=== PATIENT | male | born 1980 | race Hispanic/Latino ===

== ENCOUNTER 2024-07-29 12:48 | Emergency (ER) | payer SELFPAY ==
[2024-07-29] MEDS ORDERED: LIDOCAINE 1% 20 ML MDV ONE (16:52)
[2024-07-29] MEDS ORDERED: KETOROLAC 30 MG/ML INJ ONE (16:52)
[2024-07-29] MEDS ORDERED: LIDOCAINE 2% W/EPI 1:200,000 MPF 20 ML VIAL IM ONE (17:12)
[2024-07-29] MEDS ORDERED: SMZ./TMP. 800/160 MG TABLET ONE (17:46)
[2024-07-29] MEDS ORDERED: DOXYCYCLINE 100 MG CAP PO ONE (17:47)
--- NOTE | 2024-07-29 17:49 | ER ---
Nurse's Notes [facility] Name: Graham Luque Age: 44 yrs Sex: Male : 1980 Arrival Date: 07/29/2024 Time: 12:48 Bed 12 Private MD: Diagnosis: Cutaneous abscess of neck;Low back pain Presentation: 07/29 13:13 Chief complaint: Patient states: wound to left neck/jaw. Started as a pimple that he me1 popped on Friday. Draining purulent drainage today. Fever yesterday. Also tripped going down stairs, did not fall but now has lower back pain, 03/02. Coronavirus screen: Vaccine status: Patient reports receiving the 2nd dose of the covid vaccine. Ebola Screen: No symptoms or risks identified at this time. Initial Sepsis Screen: Does the patient meet any 2 criteria? No. Patient's initial sepsis screen is negative. Risk Assessment: Do you want to hurt yourself or someone else? Patient reports no desire to harm self or others. Onset of symptoms was July 24, 2024. 13:13 Method Of Arrival: [place] [facility] [place]:13 Acuity: BURT 4 me1 17:06 Initial Sepsis Screen: Does the patient have a suspected source of infection? No. ap3 Patient's initial sepsis screen is negative. Historical: - Allergies: 13:17 PENICILLINS; me1 13:17 GABAPENTIN; me1 13:17 Strawberries; me1 - PMHx: 13:17 Hypertensive disorder; me1 - PSHx: 13:17 surgery to bilateral ankles; me1 - Immunization history:: Adult Immunizations up to date. - Infectious Disease History:: Denies. - Social history:: Smoking status: Patient denies any tobacco usage or history of. Screenin:05 [facility] ED Fall Risk Assessment (Adult) History of falling in the last 3 months, ap3 including since admission No falls in past 3 months (0 pts) Confusion or Disorientation No (0 pts) Intoxicated or Sedated No (0 pts) Impaired Gait No (0 pts) Mobility Assist Device Used No (0 pt) Altered Elimination No (0 pt) Score/Fall Risk Level 0 - 2 = Low Risk Oriented to surroundings, Maintained a safe environment, Educated pt \T\ family on fall prevention, incl call for assistance when getting out of bed, Assessed \T\ reinforced patient's understanding of fall precautions, Hourly rounding (assess needs \T\ fall precautionary measures) done, Used ambulatory aids as needed (educated on \T\ assisted with). Abuse screen: Denies threats or abuse. Nutritional screening: No deficits noted. Tuberculosis screening: No symptoms or risk factors identified. Assessment: 17:04 General: Appears in no apparent distress. Behavior is calm, cooperative, appropriate ap3 for age. Pain: Complains of pain in left jaw Pain currently is 10 out of 10 on a pain scale. Neuro: Level of Consciousness is awake, alert, obeys commands, Oriented to person, place, time, situation, Appropriate for age. Cardiovascular: Patient's skin is warm and dry. Respiratory: Airway is patent Respiratory effort is even, unlabored, Respiratory pattern is regular, symmetrical. Derm: Wound noted left jaw. Vital Signs: 13:13 BP 143 / 109; Pulse 110; Resp 17; Temp 98.6; Pulse Ox 99% ; Weight 110.68 kg; Height 5 me1 ft. 10 in. ; Pain 9/10; 13:13 Body Mass Index 35.01 (110.68 kg, 177.8 cm) me1 13:13 Pain Scale: Adult me1 ED Course: 12:49 Patient arrived in ED. im 13:08 Bertin Pineda PA is PHCP. cp 13:08 Bertin Martin MD is Attending Physician. cp 13:17 Triage completed. me1 13:17 Arm band placed on Patient placed in waiting room. me1 16:47 Urinalysis W/Microscopic Sent. go2 17:05 Patient has correct armband on for positive identification. Bed in low position. Call ap3 light in reach. Side rails up X 1. Adult w/ patient. Provided Education on: medications prior to administration . 17:58 Ángela Sandoval, PASHA is Primary Nurse. ap3 17:59 No provider procedures requiring assistance completed. IV discontinued, intact, ap3 bleeding controlled, No redness/swelling at site. Pressure dressing applied. Administered Medications: 17:04 Drug: Ketorolac IM 30 mg IM once Route: IM; Site: left deltoid; ap3 17:50 Follow up: Response: No adverse reaction; Pain is decreased ap3 17:50 Drug: Lidocaine Infiltration (2 %) 10 ml 5 ml Infiltration once; with epinephrine ap3 {Note: by sumi larry.} Volume: 5 ml; Route: Infiltration; 17:58 Drug: Doxycycline PO 100 mg PO once Route: PO; ap3 17:59 Follow up: Response: Medication administered at discharge. ap3 17:59 Drug: Trimethoprim-Sulfamethoxazole PO (160 mg-800 mg (DS) 1 tablet PO once Route: PO; ap3 18:00 Follow up: Response: Medication administered at discharge. ap3 Medication: 17:59 VIS not applicable for this client. ap3 Outcome: 17:49 Discharge ordered by MD. cp 18:31 Discharged to home ambulatory, with family, ap3 18:31 Condition: good 18:31 Discharge instructions given to patient, family, Instructed on discharge instructions, follow up and referral plans. medication usage, Demonstrated understanding of instructions, follow-up care, medications, Prescriptions given X 4, 18:32 Patient left the ED. ap3 Signatures: Bertin Pineda PA PA cp Prokisch, Amanda RN RN ap3 Prerna Sidhu Michelle RN RN me1 Luz Devries RN RN go2
--- NOTE | 2024-07-29 17:49 | EDPHYS ---
Physician Documentation [facility] Name: Graham Luque Age: 44 yrs Sex: Male : 1980 Arrival Date: 07/29/2024 Time: 12:48 Bed 12 Private MD: JESSICA Physician Bertin Martin HPI: 07/29 13:35 This 44 yrs old Male presents to ER via Ambulatory with complaints of Wound Infection - cp on jaw. 13:35 The patient presents with an abscess of the below left lower jaw. Description: cp draining, erythematous, swollen. 13:35 Onset: The symptoms/episode began/occurred this past Friday. cp 13:35 Associated signs and symptoms: Pertinent negatives: fever. The patient presents with cp pain that is acute, of low back after misstep while going down stairs yesterday. denies fall. 13:35 Associated signs and symptoms: Pertinent negatives: abdominal pain, fever, cp incontinence, numbness, weakness. Historical: - Allergies: 13:17 PENICILLINS; me1 13:17 GABAPENTIN; me1 13:17 Strawberries; me1 - PMHx: 13:17 Hypertensive disorder; me1 - PSHx: 13:17 surgery to bilateral ankles; me1 - Immunization history:: Adult Immunizations up to date. - Infectious Disease History:: Denies. - Social history:: Smoking status: Patient denies any tobacco usage or history of. ROS: 13:40 Back: Positive for pain at rest, pain with movement, cp 13:40 Constitutional: Negative for body aches, chills, fever, poor PO intake, cp 13:40 Respiratory: Negative for cough, shortness of breath, wheezing, 13:40 Skin: Positive for abscess, of the below left lower jaw, 13:40 Eyes: Negative for injury, pain, redness, and discharge, cp 13:40 Cardiovascular: Negative for chest pain, cp 13:40 Abdomen/GI: Negative for abdominal pain, 13:40 Neuro: Negative for altered mental status, dizziness, headache, numbness, weakness, 13:40 All other systems are negative, Exam: 13:45 Constitutional: The patient appears in no acute distress, alert, awake, non-toxic, well cp developed, well nourished, overweight 13:45 Head/Face: Normocephalic, atraumatic. cp 13:45 Eyes: Periorbital structures: appear normal, Conjunctiva: normal, no exudate, no injection, Sclera: no appreciated abnormality, Lids and lashes: appear normal, bilaterally, 13:45 ENT: External ear(s): are unremarkable, Nose: is normal, Mouth: Lips: moist, Oral mucosa: moist, Posterior pharynx: Airway: no evidence of obstruction, patent, 13:45 Neck: External neck: examination left anterior upper neck below jaw: quarter size abscess with mild surrounding erythema and swelling, 13:45 Chest/axilla: Inspection: normal, 13:45 Cardiovascular: Rate: tachycardic, Rhythm: regular, 13:45 Respiratory: the patient does not display signs of respiratory distress, Respirations: normal, no use of accessory muscles, no retractions, labored breathing, is not present, Breath sounds: are clear throughout, no decreased breath sounds, no stridor, no wheezing, 13:45 Abdomen/GI: Exam negative for discomfort, distension, guarding, Inspection: abdomen appears normal, 13:45 Back: pain, that is mild, of the lumbar area, ROM is normal, 13:45 Neuro: Orientation: to person, place \T\ time. Mentation: able to follow commands, Motor: moves all fours, strength is normal, Sensation: is normal, Gait: is steady, at a normal pace, without difficulty, Vital Signs: 13:13 BP 143 / 109; Pulse 110; Resp 17; Temp 98.6; Pulse Ox 99% ; Weight 110.68 kg; Height 5 me1 ft. 10 in. ; Pain 9/10; 13:13 Body Mass Index 35.01 (110.68 kg, 177.8 cm) me1 13:13 Pain Scale: Adult me1 Procedures: 17:50 I \T\ D: Incision and drainage was performed for an abscess of the left side area of neck cp below lower jaw Prepped with Betadine, Anesthetized with ml's 2% Lidocaine with epinephrine. 4 ml's 2% Lidocaine with epinephrine. Drained small amount purulent fluid. bloody fluid. Packed with iodoform gauze, the patient tolerated the procedure well, curved hemostats used to open abscess. MDM: 13:23 Medical Screening Exam initiated cp 14:00 Differential diagnosis: abscess, cellulitis, Cholelithiasis Hydronephrosis ruptured cp disc. 17:49 Data reviewed: vital signs, nurses notes, lab test result(s), and as a result, I will cp discharge patient. 17:49 I considered the following discharge prescriptions or medication management in the cp emergency department Medications were administered in the Emergency Department. See MAR. Care significantly affected by the following chronic conditions: Hypertension. Counseling: I had a detailed discussion with the patient and/or guardian regarding the historical points, exam findings, and any diagnostic results supporting the discharge/admit diagnosis, to return to the emergency department if symptoms worsen or persist or if there are any questions or concerns that arise at home. Response to treatment: the patient's symptoms have mildly improved after treatment, and as a result, I will discharge patient. 07/29 13:33 Order name: I\T\D Setup; Complete Time: 17:01 cp 07/29 17:48 Order name: Wound dressing; Complete Time: 17:59 cp Administered Medications: 17:04 Drug: Ketorolac IM 30 mg IM once Route: IM; Site: left deltoid; ap3 17:50 Follow up: Response: No adverse reaction; Pain is decreased ap3 17:50 Drug: Lidocaine Infiltration (2 %) 10 ml 5 ml Infiltration once; with epinephrine ap3 {Note: by sumi larry.} Volume: 5 ml; Route: Infiltration; 17:58 Drug: Doxycycline PO 100 mg PO once Route: PO; ap3 17:59 Follow up: Response: Medication administered at discharge. ap3 17:59 Drug: Trimethoprim-Sulfamethoxazole PO (160 mg-800 mg (DS) 1 tablet PO once Route: PO; ap3 18:00 Follow up: Response: Medication administered at discharge. ap3 Disposition Summary: 07/29/24 17:49 Discharge Ordered Notes: Location: Home cp Problem: new cp Symptoms: have improved cp Condition: Stable cp Diagnosis - Cutaneous abscess of neck cp - Low back pain cp Followup: cp - With: Private Physician - When: 2 - 3 days - Reason: Recheck today's complaints Discharge Instructions: - Discharge Summary Sheet cp - Skin Abscess cp - Acute Back Pain, Adult cp - Heat Therapy cp - Back Exercises cp Forms: - Medication Reconciliation Form cp - Antibiotic Education cp - Prescription Opioid Use cp - Patient Portal Instructions cp - Leadership Thank You Letter cp Prescriptions: - Anaprox DS 550 mg Oral Tablet - take 1 tablet ORAL route every 12 hours As needed; 20 tablet; Refills: 0, cp Product Selection Permitted - Cyclobenzaprine 10 mg Oral Tablet - take 1 tablet ORAL route every 8 hours As needed; 30 tablet; Refills: 0, cp Product Selection Permitted - Bactrim DS 800-160 mg Oral Tablet - take 1 tablet ORAL route every 12 hours for 10 days; 20 tablet; Refills: 0, cp Product Selection Permitted - Doxycycline Monohydrate 100 mg Oral Tablet - take 1 tablet ORAL route every 12 hours for 10 days; 20 tablet; Refills: 0, cp Product Selection Permitted Addendum: 07/30/2024 23:24 Co-signature as Attending Physician, Bertin Martin MD I agree with the assessment and c patel plan of care. Signatures: Dispatcher [employer] Bertin Chavez MD MD cha Page, Corey, PA PA cp Prokisch, Amanda RN RN ap3 Radha Boswell RN RN me1 Corrections: (The following items were deleted from the chart) 17:17 07/29 13:35 Possible cause(s): unknown, cp cp 07/30 17:17 02 13:35 The patient presents with pain that is acute, cp cp 07/30 17:38 07/29 17:40 I \T\ D: Incision and drainage was performed for an abscess of the left side cp area of neck below lower jaw Prepped with Betadine, Anesthetized with ml's 2% Lidocaine with epinephrine. 4 ml's 2% Lidocaine with epinephrine. Drained small amount purulent fluid. bloody fluid. Packed with iodoform gauze, the patient tolerated the procedure well, curved hemostats used to open abscess. cp
[2024-07-29 18:41] VITALS: BP 143/109; TEMP 98.6; O2SAT 99
== END 2024-07-29 18:32 | disposition home or self-care (01) ==
LOC: ER 12:48
PROC: 0H94XZZ Drainage of Neck Skin, External Approach (ICD-10-PCS; principal; 2024-07-29)
DX: L02.11 Cutaneous abscess of neck (principal); M54.50 Low back pain, unspecified
CPT/HCPCS: 96372; 99284; J2003